=== PATIENT | female | born 1970 | race Caucasian/White ===

== ENCOUNTER 2021-08-05 08:31 | Outpatient (CLI) | payer OTHER ==
[2021-08-05 17:22] LABS: SARS-CoV-2 PCR by NAA Not Detected (NotDetected)
== END 2021-08-05 08:32 | disposition home or self-care (01) ==
LOC: CSHLAB 08:31
PROVIDERS: ATTEND Internal Medicine Gastroenterology
DX: Z01.812 Encounter for preprocedural laboratory examination (principal); Z20.822 Contact with and (suspected) exposure to COVID-19; Z12.11 Encounter for screening for malignant neoplasm of colon
CPT/HCPCS: U0003; U0005

== ENCOUNTER 2022-01-26 08:06 | Outpatient (CLI) | payer OTHER | END 2022-01-26 08:07 | disposition home or self-care (01) | LOC: CSHMRI 08:06 | PROVIDERS: ATTEND Surgery | DX: M54.16 Radiculopathy, lumbar region (principal); Z98.890 Other specified postprocedural states; M47.816 Spondylosis without myelopathy or radiculopathy, lumbar region | CPT/HCPCS: 72148 ==

== ENCOUNTER 2022-03-03 10:38 | Emergency (ER) | payer OTHER ==
[~2022-03-03 10:38] MED LIST: Iopamidol 300 61% 100 ML VIAL FS ONE
[2022-03-03 12:34] LABS: #Basophils 0.1 10x3/uL (0.0-0.2); #Eosinphils 0.2 10x3/uL (0.0-0.5); #Monocytes 0.4 10x3/uL (0.0-1.1); #Neutrophils 3.2 10x3/uL (1.5-8.4); %Basophils 0.9 % (0.0-2.0); %Eosinophils 4.2 % (0.0-6.0); %Lymphocytes 29.1 % (18.0-47.0); %Neutrophils 57.4 % (40.0-75.0); Hemoglobin 12.2 g/dL (12.0-15.5); Mean Corpuscular HGB CONC 32.2 g/dL (32.0-36.0); Mean Corpuscular Hemoglobin 23.9 pg (27.0-33.0); Mean Corpuscular Volume 74.3 fl (81.6-98.3); Mean Platelet Volume 8.6 fl (7.4-10.4); Platelet Count 267 10x3/uL (150-450); RBC Distribution Width 16.2 % (11.5-14.5); White Blood Cell (WBC) Count 5.5 10x3/uL (3.5-10.5)
[2022-03-03 12:41] LABS: Acetaminophen Less than 10.0 mcg/mL (10.0-30.0); Alcohol Less than 10 mg/dL (Less than 10); Salicylate Less than 8.0 mg/dL (15.0-30.0)
[2022-03-03] MEDS ORDERED: Morphine 4 MG/ML VIAL ONE ×3 (12:41→15:35)
[2022-03-03] MEDS ORDERED: Ondansetron PF 4 MG/2 ML Vial ONE (12:41)
[2022-03-03 12:43] LABS: ALT (SGPT) 24 U/L (8-55); AST (SGOT) 16 U/L (5-34); Albumin 4.1 g/dL (3.5-5.0); Alkaline Phosphatase 112 U/L (40-110); Anion Gap 14 mmol/L (10-20); BUN (Urea Nitrogen) 13 mg/dL (9.8-20.1); Bilirubin, Total 0.2 mg/dL (0.2-1.2); Calc. Creatinine Clearance 0 mL/min (70-130); Calcium 8.7 mg/dL (7.8-10.44); Carbon Dioxide 26 mmol/L (22-29); Chloride 101 mmol/L (98-107); Globulin 2.8 g/dL (2.4-3.5); Glucose 94 mg/dL (70-105); Potassium 4.2 mmol/L (3.5-5.1); Protein, Total 6.9 g/dL (6.0-8.3); Sodium 137 mmol/L (136-145)
[2022-03-03 14:38] LABS: Bilirubin Neg (Negative); Blood, Urine 25 (Negative); Clarity Slightly Cloudy (Clear); Glucose, Urine (Dipstick) Normal (Negative); Ketone, Urine 5 mg/dL (Negative); Leukocyte 500 (Negative); Nitrite Positive (Negative); Protein, Urine (Dipstick) 30 mg/dl (Neg-Trace); Urobilinogen Normal mg/dL (Less than 2); pH, Urine 6.5 (5.0-9.0)
[2022-03-03 14:40] LABS: Amphetamine Not Detected (NotDetected); Barbiturates Screen Detected (NotDetected); Benzodiazepine Screen Not Detected (NotDetected); Cocaine Metabolite Screen Not Detected (NotDetected); Methadone Not Detected (NotDetected); Methamphetamine Not Detected (NotDetected); Opiate Screen Detected (NotDetected); Oxycodone Screen Not Detected (NotDetected); Phencyclidine (PCP) Not Detected (NotDetected); THC/Cannabinoid Screen Not Detected (NotDetected); Tricyclic Screen Detected (NotDetected)
[2022-03-03 15:05] LABS: Bacteria/HPF 4+ HPF (None Seen); RBC/HPF 0-3 HPF (0-3); Squamous Epithelial 0-3 HPF (0-3)
== END 2022-03-03 16:41 | disposition home or self-care (01) ==
LOC: CSHERS 10:38
DX: S06.9X9A Unspecified intracranial injury with loss of consciousness of unspecified duration, initial encounter (principal); S00.03XA Contusion of scalp, initial encounter; R56.9 Unspecified convulsions; N39.0 Urinary tract infection, site not specified; E03.9 Hypothyroidism, unspecified; F17.210 Nicotine dependence, cigarettes, uncomplicated; Z79.899 Other long term (current) drug therapy; W19.XXXA Unspecified fall, initial encounter
CPT/HCPCS: 70450; 71260; 72125; 74177; 80053; 80185; 80306; 80307; 81003; 81015; 84146; 84484; 85025; 87077; 87086; 87186; 93005; 96374; 96375; 96376; J2270; J2405; Q9967

== ENCOUNTER 2022-10-11 13:26 | Outpatient (CLI) | payer OTHER | END 2022-10-11 13:27 | disposition home or self-care (01) | LOC: CSHMRI 13:26 | PROVIDERS: ATTEND Surgery | DX: R29.6 Repeated falls (principal); M54.16 Radiculopathy, lumbar region; R27.0 Ataxia, unspecified; M47.812 Spondylosis without myelopathy or radiculopathy, cervical region; M47.814 Spondylosis without myelopathy or radiculopathy, thoracic region; M51.24 Other intervertebral disc displacement, thoracic region; Z98.890 Other specified postprocedural states; M48.061 Spinal stenosis, lumbar region without neurogenic claudication | CPT/HCPCS: 72050; 72072; 72110; 72141; 72146; 72148 ==

== ENCOUNTER 2022-10-19 12:37 | Outpatient (CLI) | payer OTHER | END 2022-10-19 12:38 | disposition home or self-care (01) | LOC: CSHCT 12:37 | PROVIDERS: ATTEND Surgery | DX: R29.6 Repeated falls (principal) | CPT/HCPCS: 70450 ==

== ENCOUNTER 2022-11-18 08:02 | Outpatient (CLI) | payer OTHER ==
[2022-11-18] MEDS ORDERED: Iopamidol 370 76% 100 ML VIAL ONE (18:22)
[2022-11-18] MEDS ORDERED: Magnevist 469MG/ML 20 ML VIAL ONE (18:27)
== END 2022-11-18 08:03 | disposition home or self-care (01) ==
LOC: CSHCT 08:02
PROVIDERS: ATTEND Psychiatry & Neurology Neurology
DX: G40.909 Epilepsy, unspecified, not intractable, without status epilepticus (principal); I34.0 Nonrheumatic mitral (valve) insufficiency; I51.9 Heart disease, unspecified
CPT/HCPCS: 70496; 70498; 70553; 82565; 93306; A9579; Q9967